=== PATIENT | female | born 1945 | race Caucasian/White ===

== ENCOUNTER 2016-12-01 14:59 | Inpatient (IN) | payer OTHER ==
[~2016-12-01] VITALS: Ht 157.5 cm; Wt 50.0 kg
[~2016-12-01 14:59] MED LIST: ADV250/50 INH; ALDACTONE25 MG PO; ASPIR 8181 MG PO; COMINH INH; LAC PO; LASIX20 MG PO; LASIX40 MG PO; METOPROLOL SUCC25 M1 PO; TRAMADOL HCL50 MG PO; ZESTRIL20 MG PO; ZOC20 PO
[2016-12-01 16:32] LABS: CALCIUM 9.3 mg/dL (8.5-10.1); CARBON DIOXIDE 22.4 mmol/L (21-32); CHLORIDE SERUM 94 mmol/L (98-107); CREATININE SERUM 2.6 mg/dL (0.6-1.0); GLUCOSE SERUM 122 mg/dL (74-106); POTASSIUM SERUM 4.4 mmol/L (3.5-5.1); SODIUM SERUM 131 mmol/L (136-145)
[2016-12-01 16:37] LABS: ALBUMIN 3.5 g/dL (3.4-5.0); ALKALINE PHOSPHATASE 130 U/L (46-116); ALT/SGPT 12 U/L (14-59); AST/SGOT 18 U/L (15-37); BILIRUBIN TOTAL 0.7 mg/dL (0.20-1.00); TOTAL PROTEIN, SERUM 7.8 g/dL (6.4-8.2)
[2016-12-01 16:57] LABS: RED CELL DISTRIBUTION WIDTH 20.7 % (11.5-14.5)
[2016-12-01 17:02] LABS: ATYPICAL LYMPH 2 %; BAND NEUTROPHIL 1 % (0-10); MONOCYTE 5 % (0-7); SEGMENTED NEUTROPHILS 77 % (37-75); rbc morphology (normal/abnorm) ABNORMAL (NORMAL)
[2016-12-01 17:03] LABS: target cell (codocyte) 1+
[2016-12-01 17:11] LABS: PLATELET COUNT 560 x10^3mcL (130-400)
[2016-12-01] MEDS ORDERED: NEU300 PO (18:46)
[2016-12-01] MEDS ORDERED: NAPROXEN500 MG PO (18:46)
[2016-12-01 19:05] VITALS: BP 101/44
[2016-12-01 19:11] VITALS: Ht 157.5 cm; Wt 50.0 kg
[2016-12-01 21:27] VITALS: BP 114/40
[2016-12-01 23:00] LABS: FREE T4 1.53 ng/dL (0.76-1.46); FREE THYROXINE INDEX 3.6 ug/dL (1.4-4.5); T4(THYROXINE) 9.7 ug/dL (4.7-13.3)
[2016-12-01 23:04] LABS: T3 TOTAL 0.83 ng/mL
[2016-12-01 23:18] LABS: CHOLESTEROL/HDL RATIO 4.8; MAGNESIUM 1.9 mg/dL (1.8-2.4); PHOSPHOROUS 4.3 mg/dL (2.5-4.9)
[2016-12-02 00:13] LABS: BASOPHIL % 0.5 % (0-2)
[2016-12-02 00:16] LABS: PLATELET COUNT 433 x10^3mcL (130-400); RED CELL DISTRIBUTION WIDTH 21.4 % (11.5-14.5)
[2016-12-02 00:18] LABS: rbc morphology (normal/abnorm) ABNORMAL (NORMAL)
[2016-12-02 04:02] LABS: microscopic required? YES; urine erythrocyte NEGATIVE (NEGATIVE)
[2016-12-02 04:13] LABS: AMPHETAMINE QUAL UR NONE DETECTED (NEG <=1000)
[2016-12-02 05:45] VITALS: BP 107/52
[2016-12-02 06:19] LABS: BASOPHIL % 0.7 % (0-2)
[2016-12-02 06:39] LABS: CALCIUM 8.4 mg/dL (8.5-10.1); CARBON DIOXIDE 22.5 mmol/L (21-32); CHLORIDE SERUM 101 mmol/L (98-107); CREATININE SERUM 2.2 mg/dL (0.6-1.0); GLUCOSE SERUM 89 mg/dL (74-106); POTASSIUM SERUM 4.7 mmol/L (3.5-5.1); SODIUM SERUM 135 mmol/L (136-145)
[2016-12-02 06:55] LABS: PLATELET COUNT 486 x10^3mcL (130-400); RED CELL DISTRIBUTION WIDTH 21.4 % (11.5-14.5)
[2016-12-02 07:43] LABS: RED BLOOD CELLS 2.47 M/mm3 (4.10-5.10)
[2016-12-02 07:55] LABS: IRON 11 ug/dL (50-170); TOTAL IRON BINDING CAPACITY 404 ug/dL (250-450)
[2016-12-02 08:56] VITALS: BP 107/52
[2016-12-02 09:03] LABS: rbc morphology (normal/abnorm) ABNORMAL (NORMAL); tear drop cell (dacryocyte) 1+
[2016-12-02 09:45] VITALS: BP 98/49
[2016-12-02 13:33] VITALS: BP 104/48
[2016-12-02 17:41] VITALS: BP 99/50
[2016-12-02 21:25] VITALS: BP 116/57
[2016-12-03 06:13] VITALS: BP 109/60
[2016-12-03 06:14] LABS: BASOPHIL % 0.8 % (0-2)
[2016-12-03 06:19] LABS: CALCIUM 8.4 mg/dL (8.5-10.1); CARBON DIOXIDE 21.8 mmol/L (21-32); CHLORIDE SERUM 105 mmol/L (98-107); CREATININE SERUM 1.6 mg/dL (0.6-1.0); GLUCOSE SERUM 95 mg/dL (74-106); MAGNESIUM 2.1 mg/dL (1.8-2.4); PHOSPHOROUS 3.4 mg/dL (2.5-4.9); POTASSIUM SERUM 4.8 mmol/L (3.5-5.1); SODIUM SERUM 134 mmol/L (136-145)
[2016-12-03 06:44] LABS: PLATELET COUNT 434 x10^3mcL (130-400)
[2016-12-03 06:48] LABS: rbc morphology (normal/abnorm) ABNORMAL (NORMAL); tear drop cell (dacryocyte) 1+
[2016-12-03 09:32] VITALS: BP 137/65
[2016-12-03 13:37] VITALS: BP 132/66
[2016-12-03 17:13] VITALS: BP 111/60
[2016-12-03 21:13] VITALS: BP 126/67
[2016-12-04 06:20] VITALS: BP 121/57
[2016-12-04 07:24] LABS: CALCIUM 8.1 mg/dL (8.5-10.1); CARBON DIOXIDE 20.9 mmol/L (21-32); CHLORIDE SERUM 108 mmol/L (98-107); CREATININE SERUM 1.4 mg/dL (0.6-1.0); GLUCOSE SERUM 101 mg/dL (74-106); MAGNESIUM 2.2 mg/dL (1.8-2.4); PHOSPHOROUS 2.3 mg/dL (2.5-4.9); POTASSIUM SERUM 4.6 mmol/L (3.5-5.1); SODIUM SERUM 136 mmol/L (136-145)
[2016-12-04 07:39] LABS: BASOPHIL % 0.9 % (0-2)
[2016-12-04 07:46] LABS: PLATELET COUNT 430 x10^3mcL (130-400); RED CELL DISTRIBUTION WIDTH 21.6 % (11.5-14.5)
[2016-12-04 07:47] LABS: rbc morphology (normal/abnorm) ABNORMAL (NORMAL)
[2016-12-04 09:13] VITALS: BP 114/63
[2016-12-04] MEDS ORDERED: CAR1 PO (11:00)
[2016-12-04] MEDS ORDERED: PRI20 PO (11:01)
[2016-12-04] MEDS ORDERED: LEVAQUIN750 MG PO (11:02)
[2016-12-04] MEDS ORDERED: NATURAL IRON65 MG PO (11:02)
[2016-12-04] MEDS ORDERED: LAC PO (11:02)
[2016-12-04] MEDS ORDERED: ACEROLA C500 MG PO (11:03)
[2016-12-04 14:46] VITALS: BP 114/63
== END 2016-12-04 15:14 | disposition home health service (06) | DRG 377 ==
LOC: ED 14:59 → DU 17:29 → MU 12-04 11:11
PROVIDERS: Emergency Medicine; Internal Medicine Gastroenterology; ADMIT Family Medicine
PROC: 30233N1 Transfusion of Nonautologous Red Blood Cells into Peripheral Vein, Percutaneous Approach (ICD-10-PCS; 2016-12-01)
PROC: 0DB78ZX Excision of Stomach, Pylorus, Via Natural or Artificial Opening Endoscopic, Diagnostic (ICD-10-PCS; principal; 2016-12-03 07:30)
DX: K25.4 Chronic or unspecified gastric ulcer with hemorrhage (principal); N17.0 Acute kidney failure with tubular necrosis; D62 Acute posthemorrhagic anemia; E87.1 Hypo-osmolality and hyponatremia; D68.69 Other thrombophilia; N39.0 Urinary tract infection, site not specified; E11.51 Type 2 diabetes mellitus with diabetic peripheral angiopathy without gangrene; I10 Essential (primary) hypertension; E78.5 Hyperlipidemia, unspecified; J44.9 Chronic obstructive pulmonary disease, unspecified; E83.51 Hypocalcemia; D72.829 Elevated white blood cell count, unspecified; E87.8 Other disorders of electrolyte and fluid balance, not elsewhere classified; Z98.1 Arthrodesis status; Z79.82 Long term (current) use of aspirin; Z68.20 Body mass index [BMI] 20.0-20.9, adult
CPT/HCPCS: 43235; 83880; 84439; 97110-GP; 97116-GP; 97530-GP; J1200; J1610; J1644; J1885; J1956; J2250; J2310; J2916; J3010; J3490; J7030; J7050; J7613; P9016; Q0092

== ENCOUNTER 2018-11-30 18:17 | Emergency (ER) | payer OTHER ==
[~2018-11-30] VITALS: Ht 149.9 cm; Wt 49.0 kg
[~2018-11-30 18:17] MED LIST changes: +ACEROLA C500 MG PO; +CAR1 PO; +LEVAQUIN750 MG PO; +NAPROXEN500 MG PO; +NATURAL IRON65 MG PO; +NEU300 PO; +PRI20 PO
[2018-11-30 18:42] VITALS: Ht 149.9 cm; Wt 49.0 kg
[2018-11-30 19:34] LABS: BASOPHIL % 0.5 % (0-2); PLATELET COUNT 296 x10^3mcL (130-400); RED CELL DISTRIBUTION WIDTH 13.3 % (11.5-14.5)
[2018-11-30 19:39] LABS: CALCIUM 8.8 mg/dL (8.5-10.1); CARBON DIOXIDE 24.4 mmol/L (21-32); CHLORIDE SERUM 103 mmol/L (98-107); CREATININE SERUM 1.5 mg/dL (0.6-1.0); GLUCOSE SERUM 103 mg/dL (74-106); POTASSIUM SERUM 4.7 mmol/L (3.5-5.1); SODIUM SERUM 138 mmol/L (136-145)
[2018-11-30 19:43] LABS: ALBUMIN 4.2 g/dL (3.4-5.0); ALKALINE PHOSPHATASE 101 U/L (46-116); ALT/SGPT 18 U/L (14-59); AST/SGOT 20 U/L (15-37); BILIRUBIN TOTAL 0.9 mg/dL (0.20-1.00); LIPASE 285 IU/L (73-393); TOTAL PROTEIN, SERUM 8.1 g/dL (6.4-8.2)
[2018-11-30 21:08] VITALS: BP 119/63
== END 2018-11-30 22:29 | disposition home or self-care (01) ==
LOC: ED 18:17
PROVIDERS: Emergency Medicine
DX: K57.90 Diverticulosis of intestine, part unspecified, without perforation or abscess without bleeding (principal); I11.0 Hypertensive heart disease with heart failure; I50.9 Heart failure, unspecified; Z98.890 Other specified postprocedural states; Z88.0 Allergy status to penicillin
CPT/HCPCS: 36415